=== PATIENT | male | born 1960 | race Caucasian/White ===

== ENCOUNTER 2024-04-10 05:45 | Inpatient (IN) | payer BC ==
[~2024-04-10] VITALS: Ht 177.8 cm; Wt 95.2 kg
[2024-04-10] MEDS ORDERED: LIDOCAINE 2% JELLY 11ml (GLYDO) ONE (06:48)
[2024-04-10] MEDS ORDERED: LIDOCAINE 4MG/ML IV SOLN 500 ML IV ONE (06:48)
[2024-04-10] MEDS: GABAPENTIN 300 MG CAP PO ONE (07:00)
[2024-04-10] MEDS: oxyCODONE ER 20 MG TAB PO ONE (07:00)
[2024-04-10] MEDS: ACETAMINOPHEN IV 1000 MG/100ML (10MG/ML) IV ONE (07:00)
[2024-04-10] MEDS ORDERED: KETAMINE 50mg/ML 1ml syringe ONE (07:04)
[2024-04-10] MEDS ORDERED: fentaNYL CITRATE 100 MCG/2 ML VL ONE (07:05)
[2024-04-10] MEDS ORDERED: ONDANSETRON HCL 4 MG/2 ML VIAL ONE (07:05)
[2024-04-10] MEDS ORDERED: DexAMETHasone SOD PHOS 10MG/1ML VIAL INJ ONE (07:05)
[2024-04-10] MEDS ORDERED: PROPOFOL 10 MG/ML 20 ML IV ONE ×3 (07:06→10:10)
[2024-04-10] MEDS ORDERED: GLYCOPYRROLATE 0.2 MG/ML 1ML VIAL ONE (07:06)
[2024-04-10] MEDS ORDERED: ROCURONIUM 10MG/ML 10ML VIAL IV ONE (07:06)
[2024-04-10] MEDS ORDERED: MAGNESIUM SULFATE 1GM/100ML 100 ML IV ONE (07:14)
[2024-04-10] MEDS ORDERED: LIDOCAINE 2%HCL (LOCAL ANESTH.) INJ 10ml MDV ONE (07:14)
[2024-04-10] MEDS: TRANEXAMIC ACID 20 ML ONE (07:50)
[2024-04-10] MEDS: levoFLOXacin 750MG 150 ML IV ONE (07:50)
[2024-04-10] MEDS: ceFAZolin 2 GM/D5W50ml 50 ML IV ONE (07:50)
[2024-04-10] MEDS ORDERED: PHENYLEPHRINE HCL 10 MG/ML VL ONE (08:19)
[2024-04-10] MEDS ORDERED: SODIUM CHLORIDE LOCK 10 ML ONE ×4 (08:19→09:57)
[2024-04-10] MEDS ORDERED: ePHEDrine SULFATE 50 MG/ML AMP ONE (08:28)
[2024-04-10] MEDS: LIDOCAINE W/ EPINEPHRINE 1% 20ML VIAL ONE (08:48)
[2024-04-10] MEDS ORDERED: MORPHINE SULFATE INJ 2 MG/ml SYRG IV PRN (11:15)
[2024-04-10] MEDS ORDERED: ONDANSETRON HCL 4 MG/2 ML VIAL IV PRN ×2 (11:15→11:45)
[2024-04-10] MEDS ORDERED: NITROGLYCERIN 0.4 MG SL TAB SL PRN (11:15)
[2024-04-10] MEDS ORDERED: ACETAMINOPHEN 325 MG TAB PO PRN (11:15)
[2024-04-10 11:27] VITALS: O2SAT 100
[2024-04-10] MEDS ORDERED: oxyCODONE HCL 5MG TAB PO PRN (11:45)
[2024-04-10] MEDS ORDERED: HYDROmorphone HCL 2 MG/ML VL/or syr IV PRN (11:45)
[2024-04-10] MEDS ORDERED: NALOXONE HCL 0.4 MG/ML VIAL IV PRN (11:45)
[2024-04-10] MEDS ORDERED: FLUMAZENIL 0.1 MG/ML INJ 10ML MDV IV PRN (11:45)
[2024-04-10] MEDS ORDERED: fentaNYL CITRATE 100 MCG/2 ML VL IV PRN (11:45)
[2024-04-10] MEDS ORDERED: ePHEDrine SULFATE 50 MG/ML AMP IV PRN (11:45)
[2024-04-10] MEDS ORDERED: LABETALOL HCL 5 MG/ML 4ML SYRINGE IV PRN (11:45)
[2024-04-10] MEDS ORDERED: hydrALAZINE HCL 20 MG/ML VL IV PRN (11:45)
[2024-04-10] MEDS: CYCLOBENZAPRINE HCL 10 MG TAB PO SCH (11:50)
[2024-04-10 14:30] VITALS: BP 119/75; PULSE 92; RESP 18; TEMP 98.2; O2SAT 97
[2024-04-10 15:35] VITALS: RESP 18; O2SAT 97
[2024-04-10] MEDS: ceFAZolin 1GM/50ML 50 ML IV SCH (16:01)
[2024-04-10] MEDS: D5W/SOD CHLO 0.9% 1,000 ML IV SCH (16:06)
[2024-04-10 16:37] VITALS: BP 121/74; PULSE 91; RESP 18; TEMP 98; O2SAT 94
[2024-04-10 20:00] VITALS: PULSE 80; PULSE 96; RESP 18; O2SAT 99
[2024-04-10 21:00] VITALS: BP 120/77; PULSE 84; RESP 18; TEMP 98.6; O2SAT 96
[2024-04-10] MEDS: DOCUSATE SOD 100 MG CAP PO SCH (22:41)
[2024-04-11 05:00] VITALS: BP 137/75; PULSE 62; RESP 19; TEMP 98; O2SAT 95
[2024-04-11] MEDS: HYDROcodone-ACET 10/325MG TAB PO PRN (07:25)
[2024-04-11 07:44] VITALS: PULSE 85; RESP 16; O2SAT 99
[2024-04-11 08:00] VITALS: BP 139/72; PULSE 54; PULSE 60; RESP 18; TEMP 97.9; O2SAT 95
[2024-04-11] MEDS: MORPHINE SULFATE INJ 2 MG/ml SYRG IV PRN (10:07)
[2024-04-11 10:25] LABS: Basophils # (auto) 0 10 ^3/uL (0-0.2); Basophils % (auto) 0.2 % (0.0-2.0); Eosinophils # (auto) 0 10 ^3/uL (0-0.8); Eosinophils % (auto) 0.1 % (0.0-7.0); Hematocrit 45.6 % (41.0-53.0); Hemoglobin 15.4 g/dL (13.5-17.5); Lymphocytes # (auto) 1.8 10 ^3/uL (0.4-5.4); Lymphocytes % (auto) 11.6 % (10.0-50.0); Mean Corpuscular Hemoglobin 31.2 pg (28.0-32.0); Mean Corpuscular Hgb Conc. 33.8 g/dL (32.0-36.0); Mean Corpuscular Volume 92.5 fL (80.0-100.0); Monocytes # (auto) 1.2 10 ^3/uL (0-1.3); Monocytes % (auto) 8.2 % (0.0-12.0); Neutrophils % (auto) 79.9 % (37.0-80.0); Red Blood Cells 4.93 10^6/uL (4.5-5.90); Red Cell Distribution Width 13.8 % (11.8-14.3); White Blood Cell 15.1 10^3/uL (4.4-10.8)
[2024-04-11 10:51] LABS: Alanine Aminotransferase 21 U/L (7-40); Alkaline Phosphatase 89 U/L (46-116); Anion Gap 5 (5-15); Aspartate Aminotransferase 20 U/L (13-40); BUN/Creatinine Ratio 12.2 (10.0-20.0); Blood Urea Nitrogen 9 mg/dL (9-23); Calcium 9.6 mg/dL (8.5-10.1); Carbon Dioxide 27 mmol/L (20-30); Chloride 107 mmol/L (98-107); Glucose 100 mg/dL (74-106); Potassium 4.2 mmol/L (3.5-5.1); Sodium 139 mmol/L (136-145)
[2024-04-11 10:52] LABS: Albumin 4.2 g/dL (3.2-4.8); Bilirubin, Total 0.5 mg/dL (0.2-1.0); Total Protein 6.3 g/dL (5.7-8.2)
[2024-04-11 10:54] VITALS: BP 130/65; PULSE 65; RESP 16
[2024-04-11] MEDS ORDERED: OXY5T PO (11:54)
[2024-04-11] MEDS ORDERED: DOCU-265 PO (11:54)
[2024-04-11] MEDS ORDERED: CYCL-611 PO (11:54)
[2024-04-11 12:23] VITALS: TEMP 36.6
[2024-04-11 13:36] VITALS: TEMP 36.6
[2024-04-11] MEDS ORDERED: HYDR-4798 PO (14:53)
== END 2024-04-11 15:00 | disposition home or self-care (01) | DRG 460 ==
LOC: SUR 05:45 → TELE 11:08 → TELE-E-ADS 15:06
PROVIDERS: ADMIT Orthopaedic Surgery; ATTEND Internal Medicine Geriatric Medicine
PROC: 01NB0ZZ Release Lumbar Nerve, Open Approach (ICD-10-PCS; 2024-04-10)
PROC: 00NY0ZZ Release Lumbar Spinal Cord, Open Approach (ICD-10-PCS; 2024-04-10)
PROC: 4A11X4G Monitoring of Peripheral Nervous Electrical Activity, Intraoperative, External Approach (ICD-10-PCS; 2024-04-10)
PROC: 0SG00AJ Fusion of Lumbar Vertebral Joint with Interbody Fusion Device, Posterior Approach, Anterior Column, Open Approach (ICD-10-PCS; principal; 2024-04-10 07:44)
DX: M48.061 Spinal stenosis, lumbar region without neurogenic claudication (principal); F17.210 Nicotine dependence, cigarettes, uncomplicated; E66.9 Obesity, unspecified; M51.16 Intervertebral disc disorders with radiculopathy, lumbar region; M43.16 Spondylolisthesis, lumbar region; Z68.30 Body mass index [BMI] 30.0-30.9, adult
CPT/HCPCS: 36415; 72100; 76000; 80053; 85025; 97163; G0378; J0131; J1100; J1956; J2001; J2405; J2704